=== PATIENT | female | born 1985 | race Two or more races ===

== ENCOUNTER 2024-07-25 15:06 | Outpatient (REF) | payer SELFPAY ==
[2024-07-25 16:19] LABS: MANUAL DIFF FLAG NO
[2024-07-25 16:21] LABS: Basophils Absolute Auto 0.1 X10*3/uL (0.0-0.2); Basophils Percent Auto 1.2 % (0-2); Eosinophils Absolute Auto 0.2 X10*3/uL (0.0-0.4); Eosinophils Percent Auto 2.5 % (0-4); Hematocrit 36.5 % (37.0-47.0); Hemoglobin 11.9 g/dl (12.0-16.0); Imm Gran Abs Auto 0.05 X10*3/uL (0.00-0.03); Imm Gran Pct Auto 0.6 % (0.0-0.4); Lymphocytes Absolute Auto 1.8 X10*3/uL (1.2-4.9); Lymphocytes Percent Auto 22.7 % (20-40); Mean Corpuscular HGB Conc 32.6 g/dl (31.0-35.0); Mean Corpuscular Volume 101.1 fL (80.0-98.0); Mean Platelet Volume 10.7 fL (9.4-12.3); Monocytes Absolute Auto 0.6 X10*3/uL (0.1-1.2); Platelet Count 317 X10*3/uL (160-400); Red Blood Count 3.61 X10*6/uL (4.20-5.50); White Blood Count 7.7 X10*3/uL (4.8-10.8)
[2024-07-25 16:41] LABS: Alanine Aminotransferase 26 U/L (0-31); Alkaline Phosphatase 65 U/L (39-117); Anion Gap 13 (12-20); Aspartate Amino Transferase 22 U/L (5-31); Bilirubin Total 0.2 mg/dL (0.0-1.0); Blood Urea Nitrogen 12 mg/dL (9-16); Calcium 8.9 mg/dL (8.4-10.2); Carbon Dioxide 26 mmol/L (22-29); Chloride 106 mmol/L (96-108); Estimated Glomerular Filt Rate > 60; Glucose Random 102 mg/dL (60-115); Potassium 4.2 mmol/L (3.3-5.1); Sodium 141 mmol/L (135-145); Total Protein 6.9 g/dL (6.5-8.0)
[2024-07-25 16:56] LABS: TSH reflex Free T4 1.85 uIU/mL (0.32-4.0)
== END 2024-07-25 15:07 | disposition home or self-care (01) ==
LOC: HO.HHCL 15:06
PROVIDERS: Visit Provider General Practice
DX: E66.812 Obesity, class 2 (principal)
CPT/HCPCS: 36415; 80053; 84443; 85025

== ENCOUNTER 2024-12-14 17:45 | Outpatient (REF) | payer OTHER, SELFPAY ==
[2024-12-15 11:41] LABS: Bacterial Vaginosis PCR POSITIVE (Negative); Candida Group PCR NOT DETECTED (Not Detect); Candida glab krusei PCR NOT DETECTED (Not Detect); Trichomonas vaginalis PCR NOT DETECTED (Not Detect)
[2024-12-22 15:19] LABS: HPV Genotype 16 Negative (Negative); HPV Genotype 18 Negative (Negative); HPV High Risk Negative (Negative)
== END 2024-12-14 17:46 | disposition home or self-care (01) ==
LOC: HO.HHCLNP 17:45
PROVIDERS: Visit Provider General Practice
DX: Z12.4 Encounter for screening for malignant neoplasm of cervix (principal)
CPT/HCPCS: 81515; 87626; 88175

== ENCOUNTER 2025-02-18 15:07 | Outpatient (REF) | payer OTHER, SELFPAY ==
--- NOTE | ~2025-02-18 | XR_ITS ---
EXAMINATION: XR CHEST CLINICAL INFORMATION: new onset wheeze , uri COMPARISON: None available. TECHNIQUE: 2 views of the chest were obtained. FINDINGS: No consolidation, pleural effusion or pneumothorax. Cardiomediastinal silhouette size is normal. Osseous structures are intact. Patient's large body habitus/obesity. XR/XR chest 2V IMPRESSION: No acute airspace disease. Electronically signed by: Buck Rosenberg MD 02/18/2025 03:54 PM EDT
--- OUTSIDE RECORDS SUMMARY | 2025-02-18 16:41 | XMS_ITS | Clinical Summary ---
Author Organization [facility] Address [address] [place] [address] Phone Care Team Providers Care Material Handling Supervisor Name Role Phone Sharona Gordon MD Primary Care Provider [phone] Allergies No known active allergies Medications methocarbamoL (ROBAXIN) 500 mg tablet Take 1 tablet (500 mg total) by mouth 2 (two) times a day for 10 doses. 10 tablet 09/05/2024 Active Active Problems Problem Noted Date Diagnosed Date COVID-19 02/26/2021 Overview (07/03/2024): 01/2021 Anxiety 04/26/2018 Marijuana use 04/26/2018 Obesity (BMI 30.0-34.9) 04/26/2018 Chronic diarrhea 02/22/2013 Overview (07/03/2024): Neg celiac Neg stool culture Colonoscopy attempted 08/2012 - poor prep Repeat [facility] normal biospy results pending Immunizations Name Administration Dates Next Due HPV, Quadrivalent 08/30/2012,11/04/2010 Influenza trivalent, 0.5mL, preservative free (Fluarix; FluLaval; Fluzone) ages 6mo and older (Afluria) 3 years and older 05/19/2012 Moderna SARS-CoV-2 COVID-19, mRNA, LNP-S, preservative free 04/01/2021 Tdap Tetanus diptheria acell ular pertussis (Boostrix; Adacel) 7yo and older 12/24/2022,05/19/2012 Surgical History Surgery Date Site/Laterality Comments TUBAL LIGATION 11/2010 PROCEDURE: HISTORICAL TUBAL LIGATION SECTION 2006 PROCEDURE: [place] DELIVERY ONLY; COMMENT: also 2008 OTHER SURGICAL HISTORY 09/2016 PROCEDURE: HYSTEROSCOPY, SURGICAL/ABLATION OTHER SURGICAL HISTORY 2016 PROCEDURE: ---- OTHER ----; COMMENT: Cervical ablation- 2016 WISDOM TOOTH EXTRACTION 2017 PROCEDURE: HISTORICAL WISDOM TEETH EXTRACTION; COMMENT: all 4 wisdom teeth. COLONOSCOPY 09/01/2012 PROCEDURE: HISTORICAL COLONOSCOPY; COMMENT: Dr. Huerta - aborted due to poor prep COLONOSCOPY 09/18/2020 PROCEDURE: HISTORICAL COLONOSCOPY; COMMENT: Visually normal, random biopsies obtained to evaluate chronic diarrhea: Normal. OTHER SURGICAL HISTORY 05/14/2022 PROCEDURE: HISTORICAL TOTAL HYSTERECTOMY W/O BSO Medical History Medical History Date Comments Anxiety 04/26/2018 DX:Anxiety Chronic diarrhea 02/22/2013 DX:Chronic diar hayder; COMMENT: Neg celiac Neg stool culture Colonoscopy attempted 08/2012 - poor prep Pt has yet to reschedule Dairy product intolerance 04/26/2018 DX:Monalisa ry product intolerance Environmental and seasonal allergies 04/26/2018 DX:Environmental and seasonal allergies Marijuana use 04/26/2018 DX:Marijuana use Obesity (BMI 30.0-34.9) 04/26/2018 DX:Obesi ty (BMI 30.0-34.9) Family History Medical History Relation Name Comments Ovarian cancer Aunt Other: seasonal allergies Daughter Prostate cancer Father Cirrhosis Maternal Grandfather +EtOH Diabetes Maternal Grandmother HTN, th yroid issues, glaucoma Other: renal disease Mother Brain cancer Mother's side great GM Breast cancer Mother's side great GM Alzheimer's disease Paternal Grandfather Breast Cancer- 71 No Known Problems Paternal Grandmother Colon cancer Neg Hx Relation Name Status Comments Aunt Brother 2 Alive Daughter Father Alive Maternal Grandfather Maternal Grandmother Alive Mother Alive Mother's side great GM Paternal Grandfather Alive Paternal Grandmother Alive Sister 1 Alive Social History Tobacco Use Types Packs/Day Years Used Date Smoking Tobacco: Former Smokeless Tobacco: Never Alcohol Use Standard Drinks/Week Comments Yes 0 (1 standard drink = 0.6 oz pur e alcohol) Comments Unknown Sex and Gender Information Value Date Recorded Sex Assigned at Not on file Legal Sex Female 9:12 AM EST Gender Identity Not on file Sexual Orientation Not on file Obstetrics History Last Filed Vital Signs Vital Sign Reading Time Taken Comments Blood Pressure 155/90 09/05/2024 12:27 PM EST Pulse 76 09/05/2024 12:27 PM EST Temperature 36.6 C (97.9 F) 09/05/2024 12:27 PM EST Respiratory Rate 18 09/05/2024 12:27 PM EST Oxygen Saturation 98% 09/05/2024 12:31 PM EST Inhaled Oxygen Concentration - - Weight 86.2 kg (190 lb) 09/05/2024 12:28 PM EST Height 149.9 cm (4' 11 ) 09/05/2024 12:28 PM EST Body Mass Index 38.38 09/05/2024 12:28 PM EST Plan of Treatment Health Maintenance Due Date Last Done Comments Hepatitis B Vaccines (1 of 3 - 19+ 3-dose series) 2005 HPV Vaccines (3 - 3-dose series) 11/22/2012 08/30/2012, 11/04/2010 Social Influencers of Health Screening 08/01/2022 COVID-19 Vaccine (3 - 2023-2 5 season) 2024 10/08/2022, 04/01/2021 Cervical Cancer Screening: HPV 02/07/2025 02/08/2020 Depression Screening 07/02/2025 07/02/2024 Cholesterol Screening (Lipid Panel) 07/04/2025 07/04/2020 DTaP,Tdap,and Td Vaccines (3 - Td or Tdap) 12/24/2032 12/24/2022, 05/19/2012 HIV Screening Completed 02/11/2021 Hepatitis C Screening Completed 02/11/2021 Influenza Vaccine Completed 05/09/2024, 05/19/2012 HIB Vaccines Aged Out No longer eligi ble based on patient's age to complete this topic Hepatitis A Vaccines Aged Out No long er eligible based on patient's age to complete this topic IPV Vaccines Aged Out No longer eligi ble based on patient's age to complete this topic MMR Vaccines Aged Out No longer eligi ble based on patient's age to complete this topic Meningococcal ACWY Vaccine Aged Out N o longer eligible based on patient's age to complete this topic Meningococcal B Vaccine Aged Out No l onger eligible based on patient's age to complete this topic Pneumococcal Vaccine: Pediatrics (0 to 5 Years) and At-Risk Patients (6 to 64 Years) Aged Out No longer eligible b ased on patient's age to complete this topic RSV Immunization Patients Under 20 months Aged Out No longer eligible b ased on patient's age to complete this topic Varicella Vaccines Aged Out No longer eligible based on patient's age to complete this topic Procedures Procedure Name Priority Date/Time Associated Diagnosis Comments HEPATITIS C SCREENING Routine 02/11/2021 HIV SCREENING Routine 02/11/2021 LIPID PANEL Routine 07/04/2020 HPV Routine 02/08/2020 from Last 3 Months or Most Recently Relevant to Health Maintenance Results * HIV Screening (02/11/2021) Pathologist [facility] HIV Screening Abstracted [facility] Provider HEALTH MAINTENANCE Final Result * Hepatitis C Screening (02/11/2021) Pathologist [facility] Hepatitis C Screening Abstracted [facility] Provider HEALTH MAINTENANCE Final Result * (ABNORMAL) Lipid panel (07/04/2020) [facility] LDL/HDL Ratio 4 0 - 4 Triglycerides 210(A) 0 - 150 mg/dL Cholesterol 161 0 - 200 mg/dL HDL 44 >=40 mg/dL LDL Cholesterol 75 0 - 100 mg/dL Blood Venous blood specimen / Unknown Result [facility] Provider LAB BLOOD ORDERABLES Deya l Result * Cervical Cancer Screening: HPV (02/08/2020) Pathologist [facility] Cervical Cancer Screening: HPV Negative, Abstracted Result [facility] Provider HEALTH MAINTENANCE Final Result from Last 3 Months or Most Recently Relevant to Health Maintenance Insurance [employer] Care Teams Material Handling Supervisor Relationship Specialty Start Date End Date Sharona Gordon MD [address] [place] [phone] PCP - General 09/29/22
== END 2025-02-18 15:08 | disposition home or self-care (01) ==
LOC: HO.HHCX 15:07
PROVIDERS: PCP General Practice; Visit Provider Nurse Practitioner Family
DX: J06.9 Acute upper respiratory infection, unspecified (principal); J40 Bronchitis, not specified as acute or chronic; R06.2 Wheezing
CPT/HCPCS: 71046

== ENCOUNTER → 2025-02-18 15:39 | Outpatient (BNV) | payer OTHER, SELFPAY | PROVIDERS: PCP General Practice; Visit Provider Radiology Diagnostic Radiology | DX: R06.2 Wheezing (principal); J06.9 Acute upper respiratory infection, unspecified | CPT/HCPCS: 71046 ==